=== PATIENT | female | born 1950 | race Hispanic/Latino ===

== ENCOUNTER 2018-08-03 09:26 | Outpatient (RCR) | payer MEDICARE, MEDICAID ==
[2018-07-15 07:23] VITALS: BP 132/81
--- NOTE | 2018-07-15 08:38 | NUR ---
07/14/18 0990 Patient in the office for monthly vitals. Pt's vitals stable and charted. Pt states she was sick last week and Dr Wisdom prescribed Immodium. Pt states she is better now. Pt continues to state that she has jaw pain. Pt is stating she has not had her dentures for about 4 years. RN discussed with pt about her piano case maker. Pt states she has a piano case maker but unsure of the persons name. RN discussed with pt that RN has called the [facility] to discuss pt seeing a dentist. [id number] Call to patients [facility] to discuss the status on the pt seeing a dentist. Sophia stated the pt now has [facility] and will have dentist. Sophia states she is following up on this. Sophia also stated that the pts piano case maker is Laquita Moore. Will continue to follow up.
--- NOTE | 2018-07-15 13:52 | NUR ---
07/15/18 0859 Call to billing and inquired with Marj in regards to pt having [facility] insurance. Will fax over a copy of patients insurance information. 0903 Call to pt's [facility] to get copies of patients insurance updates and fax it to Marj in billing.
--- NOTE | 2018-07-19 13:58 | NUR ---
1142 Call to [facility] to inquire on how the patient is doing today. As per Diane, the pt stated she did not want to attend [facility] today.
--- NOTE | 2018-07-27 08:15 | NUR ---
07/26/18 0835 As per Diane at the [facility], patient is not feeling well and will not be in today.
--- NOTE | 2018-07-27 12:07 | NUR ---
07/23/18 Patient in today for Treatment team. Pt presents clean and neat, alert and oriented x 3. Pt in a mildly bright mood. Pt states she is doing well in the program and wants to continue at 3x/week. Pt will follow up in one month. Treatment team concluded.
--- NOTE | 2018-08-02 08:03 | NUR ---
07/29/18 1333 Call to doctor [facility] office to follow up with the doctor on patients stating she has constant jaw pain.
[~2018-08-03] VITALS: Ht 165.1 cm; Wt 106.6 kg
[~2018-08-03 09:26] MED LIST: ACETAMINOPHEN325 MG PO; ACID CONTROL MA20 MG PO; ACIDOPHILUS/PECTIN PO; ALBUTEROL SUL0.083 % IN; ARTIFIC TEAR OU; CLONAZEPAM0.5 M1 PO; HALDOL1 M1 PO; HALOPERIDOL1 MG PO; NEURONTIN400 MG PO; OLANZAPINE10 MG PO; PROTONIX40 M2 PO; RISACAL-D PO; SERTRALINE50 MG PO; TRAZODONE100 MG PO; VENTOLIN HF1 IN; VITAMIN B CO PO; [UNRECOGNIZED DRUG - OTHER] PO
--- NOTE | 2018-08-03 11:09 | NUR ---
08/02/18 0953 Call to patients [facility] to inquire why she did not attend IOP today. Diane states the pt was tired today.
--- NOTE | 2018-08-03 11:09 | NUR ---
08/02/[address] Hogan office and spoke with Paz in regards to leaving a message for to call back on patient. Paz states the doctor tried calling Rolan Camarillo and the phone rang with no voice message. RN gave cell phone so that the doctor can call back.
[2018-08-04 13:10] VITALS: BP 113/81
--- NOTE | 2018-08-04 13:33 | NUR ---
08/03/18 0930 Patient heard coughing in kitchen. Pt had a cup of coffee and states she is choking. pt encouraged to cough. Pt speaking to RN. RN asked pt if she ate anything. Pt states no just coffee. RN notices empty string cheese wrappers and points to them. pt states she had the cheese but she pulled it apart. Pt states she is okay now. RN asks pt if she is not sure when she is swallowing her food or if she is eating too fast. Pt states she is unaware when to swallow. Pt states she is afraid to eat. Pt felt better and wanted to go to group. RN stated to therapist if pt had any issues during the first group, to make RN aware. 0951 Call to [facility] and spoke with Mckenna. As per Mckenna, she states the pt has never had any issue choking while living in the [facility]. RN states to Mckenna that this is the 3rd time that the pt had an issue. One time eating jello and another time eating fruit. RN stated to Mckenna that a second phone call has gone out to the doctor for advisement and is awaiting his response. RN states concern for pt. 1125 RN notices pt is in the kitchen drinking coffee again. RN asks pt if she is okay and if we can check her vital signs. Pt's vitals are: BP 141/87, P 91, T98.0 RR 16. Pt states she chokes and nobody does anything for her. Pt made aware that the doctor is going to be at the [facility] and will assess her. RN coached pt on the steps for eating food. RN educated pt on taking small bites and chewing slowly and how to focus on mindful eating. Pt stated she wants yogurt at lunch time. 1141 As per team otr truck driver, he states the pt got on the bus this morning coughing. Gate Services Supervisor states: " she was hacking on the bus" 1157 Patient came into office from group and states she is having chest pains on left side. Pt states she wants to go to the hospital. 911 is called. Pt presents holding her left chest and rocking back and forth. RN coached pt through deep breathing exercises. ( Pt has past history of anxiety with chest pain and deep breathing exercises have helped). Pts vitals: BP 113/81, p82, rr18 T 98.0 Pt is sitting upright in chair. Pt at times does not hold her chest. Pt asks for her purse in the other room that is in group therapy. Pt able to talk without any respiratory distress. Pt's skin condition is warm, pink and dry. 1206 Ambulance arrives and takes pt via wheelchair. Pt transported w/o incident. Will continue to monitor pt.
--- NOTE | 2018-08-04 13:48 | NUR ---
08/03/18 1212 Call to pt's [facility] to make them aware that pt is on the way to the hospital. [address] Hogan office to make him aware that pt is on her way to the hospital. 1315 Call to patients sister to make her aware that pt is on her way to the hospital. Pt's sister states that pt has a pmh of something wrong with her esophagus. Pt sister and RN also discuss pt needing to see a dentist. Sister states she is aware but cannot bring her because she works and lives too far. Pt sister states the pt does not have the money to pay for someone to take her to the dentist. Will continue to follow up with pt.
--- NOTE | 2018-08-05 07:23 | NUR ---
08/04/18 0711 Call to [facility] to inquire on how the pt is doing. As per emergency room nurse, pt is still in the E.R. but is admitted and will be transferred to room 408 bed 2. Will follow up with patient.
--- NOTE | 2018-08-05 08:15 | NUR ---
08/05/18 0809 Call to pt in hospital. Pt states she has a burning feeling in her chest. Pt states that she does not know anything on what her diagnosis is or what the plan of action is. Will continue to follow up.
[2018-08-18] MEDS ORDERED: OMNI-PAC300 MG PO (08:59)
== END 2018-08-05 23:59 | disposition still patient (30) ==
LOC: PATHWAYS 09:26
PROVIDERS: ATTEND Specialist
DX: F33.8 Other recurrent depressive disorders (principal); F60.3 Borderline personality disorder